=== PATIENT | male | born 1955 | race Two or more races ===

== ENCOUNTER 2018-12-28 13:15 | Emergency (ER) | payer SELFPAY ==
[~2018-12-28] VITALS: Ht 162.6 cm; Wt 68.5 kg
[2018-12-28 13:56] VITALS: Ht 162.6 cm; Wt 68.5 kg
[2018-12-28 17:29] VITALS: BP 134/80
== END 2018-12-28 17:29 | disposition home or self-care (01) ==
LOC: ED 13:15
DX: M54.2 Cervicalgia (principal); M54.9 Dorsalgia, unspecified; I10 Essential (primary) hypertension; Z95.1 Presence of aortocoronary bypass graft; V49.49XA Driver injured in collision with other motor vehicles in traffic accident, initial encounter; Y93.I9 Activity, other involving external motion; Y92.413 State road as the place of occurrence of the external cause; Y99.8 Other external cause status